=== PATIENT | male | born 1995 | race Caucasian/White ===

== ENCOUNTER → 2019-03-18 07:55 | Outpatient (CLI) | payer OTHER, MEDICAID, SELFPAY ==
--- NOTE | 2019-03-18 07:57 | DI.US.S_ITS ---
PROCEDURE: US SCROTUM INDICATIONS: RIGHT TESTICLE LUMP TECHNIQUE: Real-time scanning was performed of the scrotum and testicles, with image documentation. Color and pulse Doppler interrogation was performed of both testicles. COMPARISON: None. FINDINGS: Right: Testicle is normal in size at 4.4 x 3.7 x 2.4 cm, and homogenous in echotexture. Epididymis is normal in overall size and morphology. Trace hydrocele. No varicoceles. Overlying scrotal skin is normal in thickness. The patient palpates in the right epididymal tail which appears normal. Left: Testicle is normal in size at 4.7 x 2.9 x 2.1 cm, and homogeneous in echotexture. Epididymis is normal in overall size and morphology. No hydrocele or varicoceles. Overlying scrotal skin is normal in thickness. Doppler: Color and pulse Doppler demonstrate normal and symmetric arterial flow in both testicles. IMPRESSION: 1. Trace right hydrocele. 2. Palpable abnormality correlates to a sonographically appearing normal right epididymal tail. 3. No mass. No testicular torsion. No hyperemia to suggest epididymoorchitis. Dictated by: Raimundo Pruitt M.D. on 03/18/2019 at 8:46 Approved by: Raimundo Pruitt M.D. on 03/18/2019 at 8:48
[2019-03-18 10:16] LABS: Add Manual Diff / Slide Review NO; Basophils Absolute Auto 100 /uL (0-100); Eosinophils Absolute Auto 200 /uL (0-450); Eosinophils Percent Auto 3.3 % (2-4); Hematocrit 42.1 % (41-53); Hemoglobin 14.7 g/dL (13.5-17.5); Lymphocytes Absolute Auto 1700 /uL (1100-4500); Mean Corpuscular Hemoglobin 31.8 PG (26-34); Mean Corpuscular Volume 90.7 fL (80-100); Monocytes Absolute Auto 600 /uL (0-900); Monocytes Percent Auto 8.5 % (3-14); Neutrophils Absolute Auto 4300 /uL (1500-7000); Neutrophils Percent Auto 62.2 % (50-75); Platelet Count 210 X10^3/uL (150-400); Red Blood Cell Count 4.64 X10^6/uL (4.5-5.9); Red Cell Distribution Width 12.3 % (11.6-14.8)
[2019-03-18 10:32] LABS: Alanine Aminotransferase 26 IU/L (<50); Albumin 4.7 g/dL (3.5-5.0); Albumin Globulin Ratio 1.6 (1.0-2.8); Alkaline Phosphatase 62 U/L (38-126); Aspartate Aminotransferase 32 IU/L (17-59); BUN Creatinine Ratio 21.3 (6-22); Bilirubin Total 0.4 mg/dL (0.2-1.3); Blood Urea Nitrogen 17 mg/dL (9-20); Calcium 9.2 mg/dL (8.4-10.2); Carbon Dioxide 29 mmol/L (22-32); Chloride 104 mmol/L (98-107); Cholesterol 135 mg/dL (140-199); Estimated Glomerular Filt Rate > 60.0 mL/min (>60); Globulin 2.9 g/dL (1.7-4.1); Glucose 94 mg/dL (70-100); HDL Cholesterol 58 mg/dL (40-60); HEMOLYSIS 16 (0-50); LDL Cholesterol Calculated 69 mg/dL (<100); Potassium 4.2 mmol/L (3.4-5.1); Sodium 140 mmol/L (137-145); Total Protein 7.6 g/dL (6.3-8.2); Triglycerides 41 mg/dL (35-150)
== END ==
PROVIDERS: PCP Hospitalist; Visit Provider Hospitalist
DX: Z00.00 Encounter for general adult medical examination without abnormal findings (principal); N50.89 Other specified disorders of the male genital organs
CPT/HCPCS: 36415; 76870; 80053; 80061; 85025